=== PATIENT | male | born 1970 | race Two or more races ===

== ENCOUNTER 2023-06-05 19:48 | Emergency (ER) | payer OTHER, SELFPAY ==
[2023-06-05 19:52] VITALS: BP 171/97; PULSE 77; RESP 18; TEMP 37.6; O2SAT 95; BMI 31.9
--- NOTE | 2023-06-05 20:19 | ED.GENADULT ---
HPI - General Adult General Time Seen by Provider: 20:19 Date Seen: 06/05/23 Chief complaint: Extremity Pain/Injury, Lower Stated complaint: Pain in R knee and L ankle Time Seen by Provider: 06/05/23 20:05 Source: patient, RN notes reviewed and warehouse delivery driver Mode of arrival: ambulatory Limitations: no limitations History of Present Illness HPI narrative: Patient is a 52-year-old male accompanied by family in seen with the aid of the warehouse delivery driver with complaint of left ankle and right knee pain. He has been having difficulty ambulating more so because of the left ankle. The left ankle is more painful. About 8 years ago he does report he had a fork lift injure this foot or ankle, further details not known. Since sometime in March, the ankle has been more swollen and painful, having difficulty walking on it. He denies any recent trauma. He has had no fevers. Denies any medications, did not try any Tylenol or ibuprofen. He states there has been swelling in the ankle, was worse a few days ago. He also notes his right knee will hurt, seems to be the whole knee that will hurt him. He may have twisted it pushing a wheelbarrow at 1 point. Pain seems to be within the knee, will hurt with movement and standing. He will sometimes feel localize into the posterior aspect of the knee. Denies any numbness or tingling. He denies other joints bothering him. Related Data Home Medications Medication Instructions Recorded Confirmed No Known Home Medications 06/05/23 06/05/23 Allergies Allergy/AdvReac Type Severity Reaction Status Date / Time No Known Drug Allergies Allergy Verified 06/05/23 20:01 Review of Systems Status of ROS: Reports: 6 or more systems reviewed and unremarkable except as noted in History and below Exam Const: Vital Signs, click to edit/add: Vital Signs - 24 hr 06/05/23 19:52 Temperature 99.6 F Pulse Rate [Pulse Oximeter] 77 Respiratory Rate 18 Blood Pressure [Ri ght Upper Arm] 171/97 H Pulse Oximetry 95 Oxygen Delivery Me thod Room Air This 52-year-old male is very pleasant, does speak some Kisw[place]ili with me but we still go through the warehouse delivery driver so the rest of his accompanying family members understand. Sclera clear, face atraumatic, symmetrical facial function. Lungs are clear, good air entry, no wheezing or crackles. CV regular rate and rhythm, no murmur. Abdomen is obese but soft, nontender. His right knee has no swelling, no erythema he does have full range of motion of the knee but does state it is a little tender on range of motion. I get no sense of ligamentous laxity, do not feel any popliteal fossa masses. There is no lower extremity edema on this side, absolutely no pretibial edema, no calf tenderness, no overlying skin changes. He has good peripheral pulses of this right foot. His left ankle most definitely is swollen, has a joint effusion, has pain when a attempt range of motion. There is no erythema but I do feel a generalized sense of warmth. The edema does extend down into the foot. Neurovascular is intact in this foot. Documenting provider has reviewed patient's vital signs: yes Course Course ED Course: We discussed x-ray images of the left ankle in the right knee to see if there is any underlying arthritic changes. I would recommend chemistries/labs. We discussed arthritis, such possibilities as gout. It sounds as if he is not even attempted basic pain management with Tylenol or ibuprofen. Will see what we find on his workup with the labs and the x-rays. Reevaluation(s) Time of Reevaluation #1: 22:50 Reevaluation #1: Reviewed the x-ray findings with the patient. He is going to need to follow up with Orthopedics. We are going to try cam walker on his left lower extremity to see if this helps him with ambulation at all. As far as the knee, he will need to follow up with Orthopedics, possibilities could include potentially injection. They may want further imaging, also reviewed trying Tylenol and ibuprofen per bottle directions. I do think inflammatory arthropathy such as gout is still possible about this left ankle but fluid may need to be obtained for further diagnosis and management. Thus, follow up with Orthopedics is imperative and has been stressed to the patient. Vital Signs Vital signs: Initial Vital Signs Temperature 99.6 F 06/05/23 19:52 Temperature Source Temporal Artery Scan 06/05/23 19:52 Pulse Rate 77 06/05/23 19:52 Pulse Rhythm Regular 06/05/23 19:52 Respiratory Rate 18 06/05/23 19:52 Blood Pressure 171/97 H 06/05/23 19:52 Blood Pressure Mean 121 H 06/05/23 19:52 Blood Pressure Position Sitting 06/05/23 19:52 Pulse Oximetry 95 06/05/23 19:52 Oxygen Delivery Method Room Air 06/05/23 19:52 Vital Signs Temperature 99.6 F 06/05/23 19:52 Pulse Rate 77 06/05/23 19:52 Respiratory Rate 18 06/05/23 19:52 Blood Pressure 171/97 H 06/05/23 19:52 Pulse Oximetry 95 06/05/23 19:52 Oxygen Delivery Method Room Air 06/05/23 19:52 Temperature 99.6 F 06/05/23 19:52 Pulse Rate 77 06/05/23 19:52 Respiratory Rate 18 06/05/23 19:52 Blood Pressure 171/97 H 06/05/23 19:52 Pulse Oximetry 95 06/05/23 19:52 Oxygen Delivery Method Room Air 06/05/23 19:52 Medical Decision Making Lab Data Lab results reviewed: Yes I reviewed the patient's lab results Labs: Lab Results 06/05/23 Range/Units 20:58 WBC 11.88 H (4.50-11.00) K/uL RBC 4.87 (4.30-5.90) m/uL Hgb 14.0 (13.5-17.5) gm/dL Hct 42.6 (37.0-53.0) % MCV 88 (80-100) fL MCH 29 (26-34) pg MCHC 33 (32-36) gm/dL RDW Coeff of Sahil 13.0 (11.5-15.5) % Plt Count 460 H (140-440) K/uL Neut % (Auto) 63.4 (42.0-72.0) % Lymph % (Auto) 22.6 (20-44) % [place] % (Auto) 9.5 (0.0-11.0) % Eos % (Auto) 3.4 (0.0-7.0) % Baso % (Auto) 0.7 (0.0-3.0) % Neut # (Auto) 7.50 H (1.7-7.0) K/uL Lymph # (Auto) 2.70 (0.90-2.90) K/uL [place] # (Auto) 1.10 H (0.00-0.90) K/UL Eos # (Auto) 0.40 (0.00-0.50) K/uL Baso # (Auto) 0.10 (0.00-0.30) K/uL Abs Immat Gran (auto) 0.00 (0.00-0.30) K/uL Imm/Tot Granulo (auto) 0.4 % Sodium 142 (135-149) mmol/L Potassium 4.4 (3.6-5.1) mmol/L Chloride 104 (96-114) mmol/L Carbon Dioxide 28 (20-32) mmol/L Anion Gap 10 (7-15) mEq/L BUN 15 (7-30) mg/dL Creatinine 0.8 (0.5-1.5) mg/dL Estimated Creat Clear 81.52 Estimated GFR 105 ml/min Glucose 112 (60-115) mg/dL Uric Acid 8.0 (2.2-8.4) mg/dL Calcium 9.8 (8.4-10.6) mg/dL Total Bilirubin 0.5 (0.1-1.5) mg/dL AST 26 (12-35) U/L ALT 30 (4-50) U/L Alkaline Phosphatase 108 (40-150) U/L C-Reactive Protein 3.9 H (0.5-1.0) mg/dL Total Protein 8.2 (6.0-8.3) g/dL Albumin 4.4 (3.3-5.0) g/dL Imaging Data XR right knee: Attestation: I have reviewed the pertinent imaging results. Radiologist's impression: Patient: SANJEEV LUNSFORD Facility:?[facility] Patient ID:?[id number] Site Patient ID:?[id number]. Site :?1970 Study:?XRay Knee Right 2V-06/05/2023 9:44:03 PM Ordering Physician:ELLIE Final Report: INDICATION: Pain. TECHNIQUE: Right knee 2 view. COMPARISON: None. FINDINGS: No acute fracture or dislocation. Mild medial compartment narrowing. Tricompartmental spurring. Osseous loose body in the anterior joint space. Small knee joint effusion. Soft tissues are unremarkable. IMPRESSION: 1. Degenerative changes of the knee. 2. Small knee joint effusion. Dictated by Irasema Marvin MD @ 06/05/2023 10:25:41 PM (Electronic Signature) XR left ankle: Attestation: I have reviewed the pertinent imaging results. Radiologist's impression: Patient: SANJEEV LUNSFORD Facility:?[facility] Patient ID:?[id number] Site Patient ID:?[id number]. Site :?1970 Study:?XRay Extremity Left ANKLE 3V-06/05/2023 9:46:20 PM Ordering Physician:ELLIE Final Report: Indication: Pain Technique: Three views of the left ankle Comparison: None Findings: Edema in the posterior compartment of the lower calf and ankle, question soft tissue/musculoligamentous injury. No acute fracture. Alignment is maintained. Plantar and Achilles calcaneal enthesophytes noted. Impression: Posterior compartment of the lower calf and ankle edema, question soft tissue or musculoligamentous injury. Dictated by Gianni Ritchie MD @ 06/05/2023 10:24:35 PM (Electronic Signature) Discharge Plan Discharge Clinical Impression: Loose body of right knee, Ankle pain, left, Osteoarthritis of right knee Patient Disposition: Home, Self-Care Condition: Stable Instructions: Osteoarthritis (ED), Arthralgia (ED) Additional Instructions: Recommend Tylenol 1000 mg 3 times a day baseline for pain. Supplement with ibuprofen per bottle directions. You need to follow up with Orthopedics for further management and evaluation of both your ankle and knee. Phone number for the orthopedic clinic in [facility] is [phone]. You can try the boot on the left ankle in see if it helps you walk without pain. Do recommend using ice to the left ankle area and elevating this leg when resting to help decrease pain and swelling. Activity Level: Activity as Tolerated Prescriptions: No Action No Known Home Medications Follow Up/Referrals: Provider,Not a Local [Primary Care Provider] - Stand Alone Forms: [employer] Info Instructions
--- NOTE | 2023-06-05 20:29 | XR_ITS ---
Patient: SANJEEV LUNSFORD Facility:?[facility] Patient ID:?[id number] Site Patient ID:?[id number]. Site :?1970 Study:?XRay-Knee Right 2V-06/05/2023 9:44:03 PM Ordering Physician:ELLIE Final Report: INDICATION: Pain. TECHNIQUE: Right knee 2 view. COMPARISON: None. FINDINGS: No acute fracture or dislocation. Mild medial compartment narrowing. Tricompartmental spurring. Osseous loose body in the anterior joint space. Small knee joint effusion. Soft tissues are unremarkable. IMPRESSION: 1. Degenerative changes of the knee. 2. Small knee joint effusion. Dictated by Irasema Marvin MD @ 06/05/2023 10:25:41 PM Signed by:?Irasema Marvin MD @06/05/2023 10:25:41 PM (Electronic Signature)
--- NOTE | 2023-06-05 20:29 | XR_ITS ---
Patient: SANJEEV LUNSFORD Facility:?[facility] Patient ID:?[id number] Site Patient ID:?[id number]. Site :?1970 Study:?XRay-Extremity Left ANKLE 3V-06/05/2023 9:46:20 PM Ordering Physician:ELLIE Final Report: Indication: Pain Technique: Three views of the left ankle Comparison: None Findings: Edema in the posterior compartment of the lower calf and ankle, question soft tissue/musculoligamentous injury. No acute fracture. Alignment is maintained. Plantar and Achilles calcaneal enthesophytes noted. Impression: Posterior compartment of the lower calf and ankle edema, question soft tissue or musculoligamentous injury. Dictated by Gianni Ritchie MD @ 06/05/2023 10:24:35 PM Signed by:?Gianni Ritchie MD @06/05/2023 10:24:35 PM (Electronic Signature)
[2023-06-05 21:04] LABS: Basophils Percent Auto 0.7 % (0.0-3.0); Eosinophils Percent Auto 3.4 % (0.0-7.0); Hematocrit 42.6 % (37.0-53.0); Immature Granulocytes Pct Auto 0.4 %; Lymphocytes Percent Auto 22.6 % (20-44); Mean Corpuscular HGB Conc 33 gm/dL (32-36); Mean Corpuscular Hemoglobin 29 pg (26-34); Mean Corpuscular Volume 88 fL (80-100); Monocytes Percent Auto 9.5 % (0.0-11.0); Neutrophils Percent Auto 63.4 % (42.0-72.0); Platelet Count* 460 K/uL (140-440); Red Blood Count 4.87 m/uL (4.30-5.90); White Blood Count* 11.88 K/uL (4.50-11.00)
[2023-06-05 21:19] LABS: Slide Review Reflex No
[2023-06-05 21:20] LABS: Chloride* 104 mmol/L (96-114)
[2023-06-05 21:21] LABS: Albumin* 4.4 g/dL (3.3-5.0); Potassium* 4.4 mmol/L (3.6-5.1); Sodium* 142 mmol/L (135-149)
[2023-06-05 21:23] LABS: Creatinine* 0.8 mg/dL (0.5-1.5); Est. Creatinine Clearance* 81.52
[2023-06-05 21:24] LABS: Alanine Aminotransferase* 30 U/L (4-50); Alkaline Phosphatase* 108 U/L (40-150); Anion Gap 10 mEq/L (7-15); Aspartate Amino Transferase* 26 U/L (12-35); Bilirubin Total* 0.5 mg/dL (0.1-1.5); Blood Urea Nitrogen* 15 mg/dL (7-30); Carbon Dioxide* 28 mmol/L (20-32); Estimated Glomerular Filt Rate 105 ml/min; Total Protein* 8.2 g/dL (6.0-8.3)
[2023-06-05 21:25] LABS: Calcium* 9.8 mg/dL (8.4-10.6); Glucose* 112 mg/dL (60-115)
[2023-06-05 21:27] LABS: C Reactive Protein* 3.9 mg/dL (0.5-1.0)
== END 2023-06-05 23:07 | disposition home or self-care (01) ==
PROVIDERS: Emergency Provider Family Medicine
DX: M23.41 Loose body in knee, right knee (principal); M17.11 Unilateral primary osteoarthritis, right knee; M25.572 Pain in left ankle and joints of left foot
CPT/HCPCS: 36415; 73560; 73610; 80053; 84550; 85025; 86140; 99283; 99284